=== PATIENT | female | born 1940 | race Caucasian/White ===

== ENCOUNTER 2016-08-29 06:11 | Day surgery (SDC) | payer OTHER ==
[2016-08-24 14:27] VITALS: BMI 27.3
[2016-08-29] MEDS ORDERED: LIDOCAINE 1%/EPI 1:100000 (20 ML MULTI DOSE VIAL) ONE (07:16)
[2016-08-29] MEDS ORDERED: TETRACAINE 0.5% OPHTH SOLN 2 ML BOTTLE ONE (07:16)
[2016-08-29] MEDS ORDERED: BACITRACIN 3.5 GM OPTHALMIC OINT TUBE ONE (07:16)
[2016-08-29] MEDS ORDERED: POVIDONE-IODINE 5% OPHTHALMIC PREP 30 ML SOLUTION ONE (07:20)
[2016-08-29] MEDS ORDERED: SUCCINYLCHOLINE CHLORIDE 200 MG/10 ML VIAL ONE (07:24)
[2016-08-29] MEDS ORDERED: PROPOFOL 20 ML ONE ×5 (07:24→09:17)
[2016-08-29] MEDS ORDERED: ceFAZolin SODIUM 1 GM VIAL ONE ×2 (08:10→10:11)
[2016-08-29] MEDS ORDERED: ACETAMINOPHEN 500 MG TABLET (FP) PO PRN (09:22)
[2016-08-29] MEDS ORDERED: LACTATED RINGERS SOLUTION 1,000 ML IV SCH (09:30)
[2016-08-29] MEDS ORDERED: ONDANSETRON 4 MG/2 ML VIAL IVPUSH PRN (09:53)
[2016-08-29] MEDS ORDERED: oxyCODONE HCL 5 MG TABLET PO PRN (09:54)
[2016-08-29 10:14] VITALS: TEMP 97.8
[2016-08-29] MEDS ORDERED: ONDANSETRON 4 MG/2 ML VIAL ONE (10:20)
[2016-08-29 10:39] VITALS: PULSE 66
[2016-08-29] MEDS ORDERED: ACETAMINOPHEN 500 MG TABLET (FP) ONE (10:41)
[2016-08-29 11:53] VITALS: BP 133/73
--- NOTE | 2016-08-30 08:08 | OP ---
DATE OF OPERATION: 08/29/2016 PREOPERATIVE DIAGNOSIS: Involutional ptosis, both upper lids. POSTOPERATIVE DIAGNOSIS: Involutional ptosis, both upper lids. PROCEDURE: Levator advancement and reattachment, both upper lids. SURGEON: Gary Ryan MD ANESTHESIA: Local sedation. COMPLICATIONS: None. DESCRIPTION OF PROCEDURE: Patient was brought to the operating room, placed on the operating room table. Vital signs monitored by Anesthesia. Tetracaine was placed in both eyes. Timeout was performed. Lid crease was measured and marked 10 mm above the central lid margin in both upper lids, and after intravenous sedation was administered, 2% xylocaine and 1:100,000 epinephrine was injected in the lid crease over the tarsal plate for a total of 0.6 to 0.7 mL in both upper eyelids; so, it would be a total of 1.3 mL. The massage was applied for hemostasis. The patient was prepped and draped in usual sterile fashion. The following procedure was performed bilaterally. The lid crease, which improves after the patient was prepped and draped in usual sterile fashion. Lid crease which had been previously marked was incised with a 15 blade through skin and subcutaneous tissue. This was carried down through the orbicularis with a [place] needle. Hemoglobin was achieved with the [place] needle, and dissection was carried up in suborbicularis plane to expose the septum. The septum was opened to expose preaponeurotic fat. The fat was retracted to get a nice view of the levator aponeurosis and its muscle above it in both upper lids. Meticulous attention was paid to hemostasis. The levator aponeurosis was then reattached at what appeared to be the appropriate position in the tarsal plate with 2 partial-thickness 6-0 Vicryl sutures, one centrally and one nasally in both upper lids. The central one was just temporal central and nasal central for the other one. These were tied. The second suture in the right upper lid resulted in bleeding at the superior tarsus, and therefore, cautery was applied both externally and a small amount internally for hemostasis, and then the eyelid was then compressed to remove any blood product, in order to better assess the contour and height of the eyelid, but there was some swelling of the eyelid that was undesirable at this point. The patient was then allowed to wake up from the anesthesia, and these sutures were tied with slip knots, and the patient was placed in the upright position. There was excellent contour, symmetric contour, with excellent height on the left, approximately an MRD of 3. On the right, the MRD was closer to 1.5 to 2, and it was felt that due to the swelling in the eyelid that persisted from the small amount of bleeding, that this would be an appropriate position for this eyelid. Antibiotic irrigation was performed. Meticulous hemostasis was achieved. A row of cautery was placed along the inferior edge of the wound to create the lid crease, and the wounds were closed with running 6-0 plain suture plastic technique. Bacitracin ointment was placed in the eye and on the sutures, and the patient was taken to recovery room in stable condition. GARY RYAN M.D. [id number]
== END 2016-08-29 11:20 | disposition home or self-care (01) ==
LOC: FASU 06:11
PROVIDERS: ATTEND Ophthalmology
PROC: 08SN0ZZ Reposition Right Upper Eyelid, Open Approach (ICD-10-PCS; 2016-08-29)
PROC: 08SP0ZZ Reposition Left Upper Eyelid, Open Approach (ICD-10-PCS; principal; 2016-08-29 08:12)
DX: H02.403 Unspecified ptosis of bilateral eyelids (principal)